=== PATIENT | male | born 1995 | race Caucasian/White ===

== ENCOUNTER 2018-05-19 16:09 | Emergency (ER) | payer BC ==
[2018-05-19] MEDS ORDERED: NS 0.9% 1000 ML* 1,000 ML IV ONE (18:25)
[2018-05-19 18:48] LABS: ABS Basophils 0.1 10^3/ul (0-0.2); ABS Eosinophils 0.3 10^3/ul (0-0.6); ABS Lymphocytes 2.8 10^3/ul (1.0-4.8); ABS Monocytes 0.5 10^3/ul (0-0.8); ABS Neutrophils 4.3 10^3/ul (1.5-7.7); ABS Nucleated RBC 0 10^3/ul; Eosinophil % 3.4 % (0-6); Hematocrit 43 % (42-52); Hemoglobin 14.9 g/dl (14.0-18.0); Lymphocyte % 35.5 % (25-47); Mean Corpuscular HGB Conc 35 g/dl (31-36); Mean Corpuscular Hemoglobin 30 pg (27-31); Mean Corpuscular Volume 87 fL (80-94); Mean Platelet Volume 7.2 um3 (7.4-10.4); Nucleated Red Blood Cells % 0.1; Platelet Count 243 10^3/ul (150-450); Red Blood Count 4.92 10^6/ul (4.00-5.40); Red Cell Distribution Width 14 % (10.5-15)
[2018-05-19 19:05] LABS: EGFR Non-African American 94.8 (>60)
[2018-05-19] MEDS ORDERED: DOXYcycline CAP(*) 100 MG PO ONE ×2 (20:30→20:31)
[2018-05-19 21:30] VITALS: BP 138/80
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
== END 2018-05-19 21:35 | disposition home or self-care (01) ==
LOC: ED 16:09
DX: R53.81 Other malaise (principal); R73.03 Prediabetes
CPT/HCPCS: 36415; 80053; 85025; 86140; 87476; 87798; 96360; 99283; A9270-GY

== ENCOUNTER 2019-12-24 15:53 | Emergency (ER) | payer BC ==
--- OUTSIDE RECORDS SUMMARY | 2019-12-24 16:41 | XMS REPORT | Summary of Care ---
:1995 Author Organization [facility] Address [address] [place] [address] Care Team Providers Name Role Phone Joyce Morataya Primary Care Provider Reason for Visit Reason Comments Check Up pt was told needs labs done for kidneies before getting his wisdome teeth pulled, also wants to discuss his low back pain that started over a mth ago d/t doing lots of bending and lifting Encounter Details Date Type Department Care Team Description 12/19/2019 Office Visit [facility], Back pain with radiculopathy (Primary Dx); Practice MD Joyce Numbness in feet; [address] [facility] [place] [address] [phone] Allergies No Known Allergiesdocumented as of this encounter (statuses as of 12/19/2019) Medications Medication Sig Dispensed Refills Start Date End Date Status Multiple Take 1 Tab by 0 Active Vitamins-Minerals mouth DAILY. (MULTIVITAMIN MEN PO) AMOXICILLIN PO Take by mouth 0 Active TWICE DAILY. Menthol, Topical 2 mg by Apply 0 Active Analgesic, externally (FLEXALL EX) route. sertraline Take 100 mg by 0 12/19/2019 Discontinued (ZOLOFT) 100 MG mouth DAILY. Oral Tab DOXYCYCLINE PO Take by mouth. 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 documented as of this encounter Last Filed Vital Signs Vital Sign Reading Time Taken Comments Blood Pressure 102/60 12/19/2019 11:51 AM EST Pulse 79 12/19/2019 11:51 AM EST Temperature 36.9 12/19/2019 11:51 AM EST C (98.4 F) Respiratory Rate - - Oxygen Saturation 97% 12/19/2019 11:51 AM EST Inhaled Oxygen Concentration - - Weight 117.3 kg (258 lb 8 oz) 12/19/2019 11:51 AM EST Height 188 cm (6' 2") 12/19/2019 11:51 AM EST Body Mass Index 33.19 12/19/2019 11:51 AM EST documented in this encounter Patient Instructions Patient InstructionsJoyce Morataya MD - 12/19/2019 11:40 AM EST1. Will call you with tests results and further recommendations documented in this encounter Progress Notes Joyce Morataya MD - 12/19/2019 11:40 AM EST PATIENT: Jorge Interiano : 1995 DATE OF SERVICE: 12/19/2019 SUBJECTIVE: Jorge Interiano is a 24-y.o. male who complains of low back pain for several week(s), positional with bending or lifting, with radiation down the legs. Precipitating factors: none recalled by the patient. Prior history of back problems: recurrent self limited episodes of low back pain in the past. There is intermittent numbness in the feet. Past Medical History: Diagnosis Date Anxiety Depression Horseshoe kidney Outpatient Medications as of 12/19/2019 Medication Sig Dispense Refill Multiple Vitamins-Minerals (MULTIVITAMIN MEN PO) Take 1 Tab by mouth DAILY. No current facility-administered medications on file as of 12/19/2019. OBJECTIVE: BP 102/60 (BP Location: Left arm, Patient Position: Sitting) | Pulse 79 | Temp 98.4 F (36.9 C) | Ht 6' 2" (1.88 m) | Wt 258 lb 8 oz (117.3 kg) | SpO2 97% | BMI 33.19 kg/m General appearance: alert, well appearing, and in no distress. Patient doesn't appear to be in pain, no antalgic gait noted. Lumbosacral spine area reveals .tenderness in the Lumbar area. Painful and reduced LS ROM noted. Straight leg raise is positive on both sides. DTR's, motor strength and sensation normal, including heel and toe gait. Peripheral pulses are palpable... ICD-9-CM ICD-10-CM 1. Back pain with radiculopathy 729.2 M54.10 XR LUMBAR SPINE MIN 4 VIEWS ( STANDARD) 2. Numbness in feet 782.0 R20.0 COMPREHENSIVE METABOLIC PANEL THYROID STIMULATING HORMONE CBC WITH DIFFERENTIAL VITAMIN B12 LEVEL 3. Need for vaccination V05.9 Z23 [place] TET, DIP & ACEL PERTUSSIS(DX Z23) Patient Instructions 1. Will call you with tests results and further recommendations Author: Joyce Morataya MD 12/19/2019 21:43 documented in this encounter Plan of Treatment Name Type Priority Associated Diagnoses Date/Time XR LUMBAR SPINE MIN Imaging Routine Back pain with 12/19/2019 12:31 PM 4 VIEWS (STANDARD) radiculopathy EST Health Maintenance Due Date Last Done Comments DTaP/Tdap/Td Vaccines (1 - 2005 Tdap) INFLUENZA VACCINE (#1) 2019 DEPRESSION SCREENING 12/19/2020 12/19/2019, 05/29/2018 HEPATITIS A IMMUNIZATION Aged Out No longer eligible based SERIES on patient's age to complete this topic HPV IMMUNIZATION SERIES Aged Out No longer eligible based on patient's age to complete this topic MENINGOCOCCAL VACCINE IMM Aged Out No longer eligible based on patient's age to complete this topic PNEUMOCOCCAL 0-64 YRS Aged Out No longer eligible based on patient's age to complete this topic documented as of this encounter Goals Goal Patient Goal Associated Recent Patient-Stated? Author Type Problems Progress Depression Depression 13 No kanika Sung (PHQ-9) (05/29/2018 MD Sherif total score < 5 10:43 AM EDT) Note: This is an individualized treatment (depression) goal for Jorge Interiano: Displayed above is your goal for a depression screening (PHQ-9) score that would indicate good control of your depression. Keep a regular sleep schedule Lifestyle No Sherif Sung MD Note: This is an individualized lifestyle goal for Jorge Interiano: Please maintain a regular sleep schedule. This may help with some symptoms of depression. Take all prescribed medications as directed Self-management No Sherif Sung MD Note: This is an individualized self-management goal for Jorge Interiano: Please take all prescribed medications as directed. 1. Do not skip doses. If you cannot afford your medications, talk with your doctor. 2. Use a pill reminder system such as a pill box if needed. Your pharmacist can help you with this. 3. Contact your Pharmacy 5 days before your medication runs out. If you cannot take your medications for any reasons, talk with your doctor. 4. Please bring all of your medication bottles and inhalers (or a list of all your medications/inhalers) with you to every visit. Potential barriers to meeting all of your care plan goals will continue to be addressed on an ongoing basis. documented as of this encounter Procedures Procedure Name Priority Date/Time Associated Comments Diagnosis CBC WITH DIFFERENTIAL Routine 12/19/2019 12:16 Numbness in feet Results for this PM EST procedure are in the results section. VITAMIN B12 LEVEL Routine 12/19/2019 12:16 Numbness in feet Results for this PM EST procedure are in the results section. THYROID STIMULATING Routine 12/19/2019 12:16 Numbness in feet Results for this HORMONE PM EST procedure are in the results section. COMPREHENSIVE Routine 12/19/2019 12:16 Numbness in feet Results for this METABOLIC PANEL PM EST procedure are in the results section. documented in this encounter Results VITAMIN B12 LEVEL (12/19/2019 12:16 PM EST) Vitamin B12 533 239 - 931 pg/ml [facility] Specimen Blood - Blood specimen (specimen) Performing Organization Address City/State/Zipcode Phone Number [facility] [address] [place] [address] CBC WITH DIFFERENTIAL (12/19/2019 12:16 PM EST) WBC Count 6.71 4.23 - 9.07 K/uL [facility] RBC Count 5.75 4.30 - 5.89 M/UL [facility] Hemoglobin 17.0 13.7 - 17.5 g/dL [facility] Hematocrit 49.5 40.1 - 51.0 % [facility] MCV 86.1 79.0 - 92.2 FL [facility] MCH 29.6 25.7 - 32.2 PG [facility] MCHC 34.3 32.3 - 36.5 g/dL [facility] Platelet Count 294 163 - 337 K/uL [facility] MPV 9.1 (L) 9.4 - 12.4 FL [facility] RDW 13.2 11.6 - 14.4 % [facility] Neutrophil % 47.2 34.0 - 67.9 % [facility] Lymphocyte % 38.3 21.8 - 53.1 % [facility] Monocyte % 7.7 5.3 - 12.2 % [facility] Eosinophil % 5.4 0.8 - 7.0 % [facility] Basophil % 1.3 (H) 0.2 - 1.2 % [facility] nRBC % 0.0 0.0 - 0.2 % [facility] Neutrophil # 3.16 1.78 - 5.38 K/UL [facility] Lymphocyte # 2.57 1.32 - 3.57 K/UL [facility] Monocyte # 0.52 0.30 - 0.82 K/UL [facility] Eosinophil # 0.36 0.04 - 0.54 K/UL [facility] Basophil # 0.09 (H) 0.01 - 0.08 K/UL [facility] Immature Gran % 0.1 0.0 - 0.4 % [facility] Immature Gran # 0.01 0.00 - 0.03 K/uL [facility] NRBC # 0.00 0.00 - 0.12 K/uL [facility] Specimen Blood - Blood specimen (specimen) Performing Organization Address City/State/[facility] Hospital[facility] Phone Number [facility] [address] [place] [address] THYROID STIMULATING HORMONE (12/19/2019 12:16 PM EST) TSH 0.33 (L) 0.47 - 4.68 uIu/ml [facility] Specimen Blood - Blood specimen (specimen) Performing Organization Address City/State/Zipcode Phone Number [facility] [address] [place] [address] COMPREHENSIVE METABOLIC PANEL (12/19/2019 12:16 PM EST) Sodium 139 134 - 145 mmol/L [facility] Potassium 4.7 3.5 - 5.1 mmol/L [facility] Chloride 101 98 - 107 mmol/L [facility] CO2 30 22 - 30 mmol/L [facility] Calcium 10.2 (H) 8.3 - 10.1 mg/dl [facility] Albumin 5.2 (H) 3.5 - 5.0 g/dl [facility] BUN 13 9 - 20 mg/dl [facility] Creatinine 0.9 0.8 - 1.5 mg/dl [facility] Glucose 91 70 - 99 mg/dl [facility] Total Protein 8.4 (H) 6.3 - 8.2 g/dl [facility] Total Bilirubin 0.5 0.0 - 1.1 MG/DL [facility] AST 63 (H) 17 - 59 U/L [facility] ALT 60 21 - 72 U/L [facility] Alkaline 69 40 - 150 U/L [facility] eGFR >60 See Interpretation [facility] Comment: Below ml/min/1.73ml GROUP Estimated GFR Interpretation: Sq LABORATORY Above 60ml/min/1.73m2 = Normal Renal Function 30-59 ml/min/1.73m2 = Stage 3 Chronic Kidney Disease 15-29 ml/min/1.73m2 = Stage 4 Chronic Kidney Disease Less than 15 ml/min/1.73m2 = Stage 5 Chronic Kidney Disease The GFR value is calculated using the Modification of Diet in Renal Disease ( MDRD) Study Equation which can be found at: https://www.kidney.org/content/kxlv-fpvkb-gdfsmmvk BUN/Creatinine 14 6 - 22 RAT[facility] Anion Gap 8 3 - 11 mmol/L [facility] A/G Ratio 1.6 0.8 - 2.0 ratio [facility] Specimen Blood - Blood specimen (specimen) Performing Organization Address City/State/[facility] Hospital[facility] Phone Number [facility] [address] [address] documented in this encounter Visit Diagnoses Diagnosis Back pain with radiculopathy Numbness in feet Disturbance of skin sensation Need for vaccination Need for prophylactic vaccination and inoculation against unspecified single disease documented in this encounter Insurance Payer Benefit Plan / Subscriber ID Effective Dates Phone Address Type Group [employer] x[employer]xxx 2017-Present [employer] documented as of this encounter
[2019-12-24 18:37] LABS: ABS Basophils 0.1 10^3/ul (0-0.2); ABS Eosinophils 0.3 10^3/ul (0-0.6); ABS Lymphocytes 1.6 10^3/ul (1.0-4.8); ABS Monocytes 0.7 10^3/ul (0-0.8); ABS Neutrophils 6.7 10^3/ul (1.5-7.7); Eosinophil % 3.5 %; Hematocrit 46 % (42-52); Hemoglobin 16.3 g/dL (14.0-18.0); Mean Corpuscular HGB Conc 36 g/dL (31-36); Mean Corpuscular Hemoglobin 31 pg (27-31); Mean Corpuscular Volume 86 fL (80-94); Mean Platelet Volume 6.6 fL (7.4-10.4); Platelet Count 242 10^3/uL (150-450); Red Blood Count 5.33 10^6 /uL (4.18-5.48); Red Cell Distribution Width 14 % (10-15); White Blood Count 9.4 10^3/uL (3.5-10.8)
[2019-12-24 19:06] LABS: ALT 37 U/L (7-52); AST 23 U/L (13-39); Albumin/Globulin Ratio 1.7 (1-3); Alkaline Phosphatase 74 U/L (34-104); Anion Gap 8 mmol/L (2-11); BUN/Creatinine Ratio 11.2 (8-20); Blood Urea Nitrogen 12 mg/dL (6-24); C Reactive Protein 92.38 mg/L (<8.01); CO2 Carbon Dioxide 27 mmol/L (22-32); Calcium 9.6 mg/dL (8.6-10.3); Chloride 102 mmol/L (101-111); EGFR African American 101.9 (>60); EGFR Non-African American 84.2 (>60); Glucose 96 mg/dL (70-100); Potassium 4.5 mmol/L (3.5-5.0); Sodium 137 mmol/L (135-145)
[2019-12-24 21:15] LABS: Urine Appearance Clear; Urine Bilirubin Negative (Negative); Urine Blood Negative (Negative); Urine Color Yellow; Urine Glucose Negative (Negative); Urine Ketones Trace (Negative); Urine Nitrite Negative (Negative); Urine Protein Negative (Negative); Urine Specific Gravity 1.018 (1.010-1.030); Urine Urobilinogen Negative (Negative)
--- NOTE | 2019-12-24 22:29 | ED ---
Abdominal Pain/Male - HPI Summary HPI Summary: Patient complains of umbilical pain radiating to lower abdomen, diarrhea 3 days. Abdominal pain described as intermittent, crampy, worse before bowel movement, improved after bowel movement. Denies fever, cough, sore throat, CP, SOB, N/V, change in urine. Medical history is none. Abdominal surgical history is none. - History of Current Complaint Chief Complaint: EDAbdPain Stated Complaint: ABD PAIN /DIARRHEA PER PT Time Seen by Provider: 12/24/19 22:26 Hx Obtained From: Patient Onset/Duration: Gradual Onset, Lasting Days Timing: Intermittent, Lasting Minutes Severity Initially: Moderate Severity Currently: Moderate Pain Intensity: 4 Pain Scale Used: 0-10 Numeric Location: Suprapubic, Umbilical Radiates: No Character: Cramping Aggravating Factor(s): Food Alleviating Factor(s): Bowel Movement Associated Signs And Symptoms: Positive: Negative - Allergies/Home Medications Allergies/Adverse Reactions: Allergies Allergy/AdvReac Type Severity Reaction Status Date / Time No Known Allergies Allergy Unknown Verified 12/24/19 16:08 Reaction Details Home Medications: Home Medications Desvenlafaxine ER 50 mg DAILY 12/24/19 [History Confirmed 12/24/19] Tizanidine HCl 12/24/19 [History] PMH/Surg Hx/FS Hx/Imm Hx Endocrine/Hematology History: Reports: Hx Diabetes - prediabetic Cardiovascular History: Denies: Hx Coronary Artery Disease, Hx Hypertension History: Denies: Hx Dialysis Sensory History: Denies: Hx Eye Prosthesis Opthamlomology History: Denies: Hx Legally Blind EENT History: Denies: Hx Deafness Neurological History: Denies: Hx Dementia Infectious Disease History: No Infectious Disease History: Denies: Traveled Outside the [place] in Last 30 Days - Family History Known Family History: Positive: Cardiac Disease, Hypertension, Diabetes - Social History Alcohol Use: Occasionally Substance Use Type: Reports: None Smoking Status (MU): Never Smoked Tobacco Review of Systems Constitutional: Negative Eyes: Negative ENT: Negative Cardiovascular: Negative Respiratory: Negative Positive: Abdominal Pain, Diarrhea Genitourinary: Negative Musculoskeletal: Negative Skin: Negative Neurological/Mental Status: Negative Psychological: Normal All Other Systems Reviewed And Are Negative: Yes Physical Exam - Summary Physical Exam Summary: Moderate tenderness right lower quadrant. Abdominal exam otherwise unremarkable. Triage Information Reviewed: Yes Vital Signs On Initial Exam: Initial Vitals Temp Pulse Resp BP Pulse Ox 97.7 F 94 16 132/60 96 12/24/19 16:05 12/24/19 16:05 12/24/19 16:05 12/24/19 16:05 12/24/19 16:05 Vital Signs Reviewed: Yes Appearance: Positive: Well-Appearing Skin: Positive: Warm Head/Face: Positive: Normal Head/Face Inspection Eyes: Positive: Normal Neck: Positive: Supple Respiratory/Lung Sounds: Positive: Clear to Auscultation Cardiovascular: Positive: Normal Abdomen Description: Positive: Other: Musculoskeletal: Positive: Normal Neurological: Positive: Normal Psychiatric: Positive: Normal AVPU Assessment: Alert - [place] Coma Scale Best Eye Response: 4 - Spontaneous Best Motor Response: 6 - Obeys Commands Best Verbal Response: 5 - Oriented Coma Scale Total: 15 Procedures - Sedation Patient Received Moderate/Deep Sedation with Procedure: No Diagnostics - Vital Signs Vital Signs Temp Pulse Resp BP Pulse Ox 12/24/19 21:02 97.5 F 84 16 138/80 99 12/24/19 18:54 98.8 F 88 16 122/67 97 12/24/19 16:05 97.7 F 94 16 132/60 96 - Laboratory Lab Results: Lab Results 12/24/19 12/24/19 12/24/19 Range/Units 18:24 18:24 20:57 WBC 9.4 (3.5-10.8) 10^3/uL RBC 5.33 (4.18-5.48) 10^6 /uL Hgb 16.3 (14.0-18.0) g/dL Hct 46 (42-52) % MCV 86 (80-94) fL MCH 31 (27-31) pg MCHC 36 (31-36) g/dL RDW 14 (10-15) % Plt Count 242 (150-450) 10^3/uL MPV 6.6 L (7.4-10.4) fL Neut % (Auto) 71.0 % Lymph % (Auto) 17.0 % [place] % (Auto) 7.8 % Eos % (Auto) 3.5 % Baso % (Auto) 0.7 % Absolute Neuts (auto) 6.7 (1.5-7.7) 10^3/ul Absolute Lymphs (auto) 1.6 (1.0-4.8) 10^3/ul Absolute Monos (auto) 0.7 (0-0.8) 10^3/ul Absolute Eos (auto) 0.3 (0-0.6) 10^3/ul Absolute Basos (auto) 0.1 (0-0.2) 10^3/ul Absolute Nucleated RBC 0.0 10^3/ul Nucleated RBC % 0.0 Sodium 137 (135-145) mmol/L Potassium 4.5 (3.5-5.0) mmol/L Chloride 102 (101-111) mmol/L Carbon Dioxide 27 (22-32) mmol/L Anion Gap 8 (2-11) mmol/L BUN 12 (6-24) mg/dL Creatinine 1.07 (0.67-1.17) mg/dL Est GFR ( Amer) 101.9 (>60) Est GFR (Non-Af Amer) 84.2 (>60) BUN/Creatinine Ratio 11.2 (8-20) Glucose 96 (70-100) mg/dL Calcium 9.6 (8.6-10.3) mg/dL Total Bilirubin 0.40 (0.2-1.0) mg/dL AST 23 (13-39) U/L ALT 37 (7-52) U/L Alkaline Phosphatase 74 (34-104) U/L C-Reactive Protein 92.38 H (<8.01) mg/L Total Protein 8.0 (6.4-8.9) g/dL Albumin 5.0 (3.2-5.2) g/dL Globulin 3.0 (2-4) g/dL Albumin/Globulin Ratio 1.7 (1-3) Lipase < 10 L (11.0-82.0) U/L Urine Color Yellow Urine Appearance Clear Urine pH 5.0 (5-9) Ur Specific [place] 1.018 (1.010-1.030) Urine Protein Negative (Negative) Urine Ketones Trace A (Negative) Urine Blood Negative (Negative) Urine Nitrate Negative (Negative) Urine Bilirubin Negative (Negative) Urine Urobilinogen Negative (Negative) Ur Leukocyte Esterase Negative (Negative) Urine Glucose Negative (Negative) Urine Ascorbic Acid * A (Negative) Result Diagrams: 12/24/19 18:24 12/24/19 18:24 Lab Statement: Any lab studies that have been ordered have been reviewed, and results considered in the medical decision making process. Abdominal Pain Male Course/Dx - Course Course Of Treatment: Patient complains of umbilical pain radiating to lower abdomen, diarrhea 3 days. Abdominal pain described as intermittent, crampy, worse before bowel movement, improved after bowel movement. Denies fever, cough , sore throat, CP, SOB, N/V, change in urine. Medical history is none. Abdominal surgical history is none. Vital signs within normal limits. CRP 92. Labs otherwise unremarkable. Urine negative. CT abdomen and pelvis normal abdomen. 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 Patient states history of back pain 3 weeks with occasional numbness and tingling in bilateral lower extremities. Denies real urinary retention or bowel incontinence. Has normal sensation at the anus. Denies traumatic event. No neurosurgery supervisor inspection [place] [facility] Discussed patient with neurosurgeon Dr. Dsouza at [facility] recommended discharge with outpatient follow-up. - Diagnoses Provider Diagnoses: Back pain, Diarrhea, Abdominal pain Discharge ED - Sign-Out/Discharge Documenting (check all that apply): Patient Departure - Discharge Plan Condition: Stable Disposition: HOME Patient Education Materials: Acute Nausea and Vomiting (ED), Acute Diarrhea (ED ), Back Pain (ED) Referrals: Joyce Morataya MD [Primary Care Provider] - Mustapha Bello MD [Medical Doctor] - Additional Instructions: Drink plenty of fluids to maintain hydration while having diarrhea. Follow-up with neurosurgery Dr. Bello for further evaluation of lower back pain. Incidental finding on the CAT scan today suggests stenosis of the thecal sac. - Billing Disposition and Condition Condition: STABLE Disposition: Home
[2019-12-24] MEDS ORDERED: Iohexol 300* (CONTRAST) 10 ML SDV IV ONE (23:45)
[2019-12-25 01:55] VITALS: BP 149/76
== END 2019-12-25 01:55 | disposition home or self-care (01) ==
LOC: ED 15:53
DX: R10.33 Periumbilical pain (principal); R19.7 Diarrhea, unspecified; M51.26 Other intervertebral disc displacement, lumbar region; N20.0 Calculus of kidney; Q63.1 Lobulated, fused and horseshoe kidney; R73.03 Prediabetes
CPT/HCPCS: 36415; 74177; 80053; 81003; 83690; 85025; 86140; 99282; Q9967

== ENCOUNTER 2020-01-07 08:30 | Emergency (ER) | payer BC ==
--- NOTE | 2020-01-07 08:42 | ED ---
Back Pain - HPI Summary HPI Summary: Pt. is a 24 y.o male who presents to the ER for low back pain x 1 day. Pt. notes he worked out at the gym and was carrying heavy back pain yesterday. He does not recall any specific injury or fall. Pt. notes he woke up with acute low back pain. Denies fever, urinary sxs, abd. pain, testicle pain. No past hx. Sxs are mild in severity. No modifying factors. - History of Current Complaint Chief Complaint: EDBackInjuryPain Stated Complaint: LOW BACK/LEG PAIN NUMBNESS PER PT Time Seen by Provider: 01/07/20 08:37 Hx Obtained From: Patient Pain Intensity: 8 - Allergies/Home Medications Allergies/Adverse Reactions: Allergies Allergy/AdvReac Type Severity Reaction Status Date / Time No Known Allergies Allergy Unknown Verified 01/07/20 08:35 Reaction Details Home Medications: Home Medications Tizanidine HCl 2 mg PO BID PRN 12/24/19 [History Confirmed 01/07/20] Desvenlafaxine (NF) [Pristiq (NF)] 50 mg PO DAILY 01/07/20 [History Confirmed ] Hydrocodone/Acetaminophen [Hydrocodone-Acetamin 5-325 mg] 1 each PO Q6H #12 tablet MDD 4 01/07/20 [Rx] predniSONE 50 mg TAB [Deltasone 50 mg TAB] 50 mg PO DAILY #5 tab 01/07/20 [Rx] PMH/Surg Hx/FS Hx/Imm Hx Previously Healthy: Yes Endocrine/Hematology History: Reports: Hx Diabetes - prediabetic Cardiovascular History: Denies: Hx Coronary Artery Disease, Hx Hypertension History: Denies: Hx Dialysis Sensory History: Denies: Hx Eye Prosthesis, Hx Legally Blind, Hx Deafness Opthamlomology History: Denies: Hx Eye Prosthesis, Hx Legally Blind Neurological History: Denies: Hx Dementia Infectious Disease History: No Infectious Disease History: Denies: Traveled Outside the [place] in Last 30 Days - Family History Known Family History: Positive: Cardiac Disease, Hypertension, Diabetes, Non- Contributory - Social History Occupation: Unemployed Lives: With Family Alcohol Use: Occasionally Substance Use Type: Reports: None Smoking Status (MU): Never Smoked Tobacco Review of Systems - ROS Summary Review of Systems Summary: DOXYcycline CAP(*) [DOXYcycline 100MG CAP(*)] 100 mg PO BID #28 cap 07/07/18 [Rx ] Desvenlafaxine ER 50 mg DAILY 12/24/19 [History Confirmed 12/24/19] Tizanidine HCl 12/24/19 [History] Constitutional: Negative Cardiovascular: Negative Respiratory: Negative Gastrointestinal: Negative Genitourinary: Negative Positive: Other - low back pain Skin: Negative Neurological/Mental Status: Negative Negative: Weakness, Paresthesia, Numbness All Other Systems Reviewed And Are Negative: Yes Physical Exam Triage Information Reviewed: Yes Vital Signs On Initial Exam: Initial Vitals Temp Pulse Resp BP Pulse Ox 96.8 F 92 19 198/94 100 01/07/20 08:31 01/07/20 08:31 01/07/20 08:31 01/07/20 08:31 01/07/20 08:31 Vital Signs Reviewed: Yes Appearance: Positive: Well-Appearing - Pt. sitting up in bed in NAD. Appears uncomfortable but nontoxic. Skin: Positive: Warm, Dry Head/Face: Positive: Normal Head/Face Inspection Eyes: Positive: Normal, EOMI, MAILE Neck: Positive: Supple Respiratory/Lung Sounds: Positive: Clear to Auscultation, Breath Sounds Present Cardiovascular: Positive: Normal, RRR Abdomen Description: Positive: Nontender, Soft Musculoskeletal: Positive: Other - 5/5 strength in LEs. Bilateral paraspinal pain to lumbar region. Neurological: Positive: Normal, CN Intact II-III Psychiatric: Positive: Affect/Mood Appropriate Procedures - Sedation Patient Received Moderate/Deep Sedation with Procedure: No Diagnostics - Vital Signs Vital Signs Temp Pulse Resp BP Pulse Ox 01/07/20 08:31 96.8 F 92 19 198/94 100 - Laboratory Lab Statement: Any lab studies that have been ordered have been reviewed, and results considered in the medical decision making process. Back Pain Course/Dx - Course Course Of Treatment: Pt. with acute onset low back pain. Afebrile. NO neuro deficits. Ambulatory. Toradol given for pain. Possible kidney stone given acute onset but u/a negative for RBCs. On re-exam pt. feeling much better. Suspect muscular etiology. Continue NSAIDS. Apply heat. To r.u with [facility] if sxs persist. Pt. understands and agrees with plan. - Diagnoses Differential Diagnosis/HQI/PQRI: Positive: Renal Colic, Strain, Sprain Provider Diagnoses: Acute low back pain Discharge ED - Sign-Out/Discharge Documenting (check all that apply): Patient Departure - Discharge Plan Condition: Good Disposition: HOME Prescriptions: Hydrocodone/Acetaminophen [Hydrocodone-Acetamin 5-325 mg] 1 each PO Q6H #12 tablet MDD 4 predniSONE 50 mg TAB [Deltasone 50 mg TAB] 50 mg PO DAILY #5 tab Patient Education Materials: Lumbar Disc Herniation (ED), Lumbar Spinal Stenosis (ED) Forms: *Work Release Referrals: Joyce Morataya MD [Primary Care Provider] - Additional Instructions: Follow up with physical therapy and neurosurgery as scheduled Medication as directed Avoid heavy lifting Apply ice or heat Return to ER for leg weakness, numbness to genital region, loss of bowel or bladder control or if concerned - Billing Disposition and Condition Condition: GOOD Disposition: Home - Attestation Statements Provider Attestation: Incorrect chart. - Fe Shea MD
--- OUTSIDE RECORDS SUMMARY | 2020-01-07 08:49 | XMS REPORT | Summary of Care ---
:1995 Author Organization [facility] Address [address] [place] [address] Care Team Providers Name Role Phone Joyce Morataya Primary Care Provider Reason for Visit Reason Comments Follow Up to back pain , pt stated pain is very bad today , in lower left side of back Encounter Details Date Type Department Care Team Description 01/02/2020 Office Visit [facility] Rafia, Back pain with radiculopathy (Primary Dx); Practice MD Joyce Low TSH level; [address] [place] [address] [place] [address] [phone] Allergies No Known Allergiesdocumented as of this encounter (statuses as of 01/02/2020) Medications Medication Sig Dispensed Refills Start End Date Status Date Multiple Take 1 Tab by 0 Active Vitamins-Minerals mouth DAILY. (MULTIVITAMIN MEN PO) Desvenlafaxine ER EVERY DAY 0 Active 50 MG Oral TABLET 0 SR 24 HR ibuprofen (MOTRIN) Take 1 Tab by 60 Tab 1 Active 600 MG Oral Tab mouth EVERY SIX 0 HOURS NEEDED (pain). AMOXICILLIN PO Take by mouth 0 01/02/20 Discontinued TWICE DAILY. 20 (Patient stopped the medication) Menthol, Topical 2 mg by Apply 0 01/02/20 Discontinued Analgesic, (FLEXALL externally 20 EX) route. 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 Depression documented as of this encounter (statuses as of 01/02/2020) Immunizations Name Administration Dates Next Due TDAP Vaccine 12/19/2019 documented as of this encounter Social History Tobacco Use Types Packs/Day Years Used Date Former Smoker Smokeless Tobacco: Never Used Alcohol Use Drinks/Week oz/Week Comments No Sex Assigned at Date Recorded Not on file documented as of this encounter Last Filed Vital Signs Vital Sign Reading Time Taken Comments Blood Pressure 120/60 01/02/2020 11:23 AM EST Pulse 95 01/02/2020 11:23 AM EST Temperature 36.8 01/02/2020 11:23 AM C (98.2 EST F) Respiratory Rate - - Oxygen Saturation 98% 01/02/2020 11:23 AM EST Inhaled Oxygen Concentration - - Weight 115.1 kg (253 lb 11.2 oz) 01/02/2020 11:23 AM EST Height 188 cm (6' 2") 01/02/2020 11:23 AM EST Body Mass Index 32.57 01/02/2020 11:23 AM EST documented in this encounter Patient Instructions Patient InstructionsJoyce Morataya MD - 01/02/2020 11:20 AM EST1. Follow up in 4 weeks and as needed 2. Take Motrin 600 mg every 6 hours as needed for pain documented in this encounter Progress Notes Joyce Morataya MD - 01/02/2020 11:20 AM EST PATIENT: Jorge Interiano : 1995 DATE OF SERVICE: 01/02/2020 Patient comes follow up back pain, bilateral feet paraesthesia Continues to have lower back pain. Recently increased. Takes Tylenol with minimal improvement Schedule for PT Also schedule appointment with neurosurgery (Seen recently at the ER with abdominal pain/stomach flu. Had CT done that showed spinal stenosis according to the patient) BP 120/60 (BP Location: Left arm, Patient Position: Sitting) | Pulse 95 | Temp 98.2 F (36.8 C) | Ht 6' 2" (1.88 m) | Wt 253 lb 11.2 oz (115.1 kg ) | SpO2 98% | BMI 32.57 kg/m General appearance: alert, well appearing, and in no distress. LS spine: Reversal of lumbar lordosis with out evidence of spondylolysis or spondylolisthesis. Degenerative changes in lower lumbar spine as described above. CMP - slightly elevated Calcium, AST, TSH - slightly low, CBC, Vit B12 - normal Component Latest Ref Rng & Units 12/19/2019 12/19/2019 12/19/2019 12/19/2019 12:16 PM 12:16 PM 12:16 PM 12:16 PM WBC COUNT 4.23 - 9.07 K/uL 6.71 RBC 4.30 - 5.89 M/UL 5.75 Hemoglobin 13.7 - 17.5 g/dL 17.0 Hematocrit 40.1 - 51.0 % 49.5 MCV 79.0 - 92.2 FL 86.1 MCH 25.7 - 32.2 PG 29.6 MCHC 32.3 - 36.5 g/dL 34.3 Platelet Count 163 - 337 K/uL 294 MPV 9.4 - 12.4 FL 9.1 (L) RDW 11.6 - 14.4 % 13.2 NEUTROPHILS 34.0 - 67.9 % 47.2 Lymphocyte % 21.8 - 53.1 % 38.3 MONOCYTES 5.3 - 12.2 % 7.7 Eosinophils 0.8 - 7.0 % 5.4 Basophil % 0.2 - 1.2 % 1.3 (H) nRBC % 0.0 - 0.2 % 0.0 Neutrophil # 1.78 - 5.38 K/UL 3.16 Lymphocyte # 1.32 - 3.57 K/UL 2.57 Monocyte # 0.30 - 0.82 K/UL 0.52 Eosinophil # 0.04 - 0.54 K/UL 0.36 Basophil # 0.01 - 0.08 K/UL 0.09 (H) Immature Gran % 0.0 - 0.4 % 0.1 Immature Gran # 0.00 - 0.03 K/uL 0.01 NRBC # 0.00 - 0.12 K/uL 0.00 Sodium 134 - 145 mmol/L 139 Potassium 3.5 - 5.1 mmol/L 4.7 Chloride 98 - 107 mmol/L 101 CO2 22 - 30 mmol/L 30 Calcium 8.3 - 10.1 mg/dl 10.2 (H) Albumin 3.5 - 5.0 g/dl 5.2 (H) BUN 9 - 20 mg/dl 13 Creatinine 0.8 - 1.5 mg/dl 0.9 Glucose (Lab) 70 - 99 mg/dl 91 Protein,Total 6.3 - 8.2 g/dl 8.4 (H) Total Bilirubin 0.0 - 1.1 MG/DL 0.5 AST 17 - 59 U/L 63 (H) ALT 21 - 72 U/L 60 ALKALINE PHOSPHATASE 40 - 150 U/L 69 eGFR See Interpretation Below ml/min/1.73ml Sq >60 BUN/Creatinine Ratio 6 - 22 RATIO 14 Anion Gap 3 - 11 mmol/L 8 A/G Ratio 0.8 - 2.0 ratio 1.6 TSH 0.47 - 4.68 uIu/ml 0.33 (L) Vitamin B12 239 - 931 pg/ml 533 Patient advised on tests results ICD-9-CM ICD-10-CM 1. Back pain with radiculopathy Plans for PT 729.2 M54.10 2. Low TSH level 794.5 R79.89 3. Elevated LFTs 790.6 R94.5 Will repeat non fasting blood tests in 1 month Patient Instructions 1. Follow up in 4 weeks and as needed 2. Take Motrin 600 mg every 6 hours as needed for pain Author: Joyce Morataya MD 01/02/2020 13:35 documented in this encounter Plan of Treatment Date Type Specialty Care Team Description 01/10/2020 Office Visit Physical Therapy Abbey Ochoa, PT [address] [place] [address] [phone] 01/28/2020 Office Visit Neurosurgery Lc Jeffers MD [address] [address] [phone] 01/28/2020 Lab Internal Medicine 02/01/2020 Office Visit Family Practice Joyce Morataya MD [address] [place] [address] [phone] Health Maintenance Due Date Last Done Comments INFLUENZA VACCINE (#1) 2019 DEPRESSION SCREENING 12/19/2020 12/19/2019, 05/29/2018 DTaP/Tdap/Td Vaccines (2 - 12/19/2029 12/19/2019 Tdap) HEPATITIS A IMMUNIZATION Aged Out No longer [...] ongoing basis. documented as of this encounter Results Not on filedocumented in this encounter Visit Diagnoses Diagnosis Back pain with radiculopathy Low TSH level Nonspecific abnormal results of thyroid function study Elevated LFTs Other abnormal blood chemistry documented in this encounter Insurance Payer Benefit Plan / Subscriber ID Effective Dates Phone Address Type Group [employer] [id number] 2017-Present [employer] documented as of this encounter
[2020-01-07 09:25] VITALS: BP 0/0
--- NOTE | 2020-01-07 16:56 | ED ---
Back Pain - HPI Summary HPI Summary: Patient is a 24-year-old male who presents emergency department for worsening low back pain times several days. Patient was seen in the ER last week for abdominal pain and had a CAT scan of abdomen and pelvis that showed disc herniation to lumbar spine. Patient states he's noticed increased pain over the last few days and radicular pain into left leg. Patient denies numbness or weakness. Denies bowel or bladder incontinence or retention. Denies saddle paresthesias. Symptoms are mild in severity. Patient notes he has an appointment for physical therapy past week and an appointment with neurosurgery in 3 months. No current modifying factors. - History of Current Complaint Chief Complaint: EDBackInjuryPain Stated Complaint: LOW BACK/LEG PAIN NUMBNESS PER PT Time Seen by Provider: 01/07/20 08:37 Hx Obtained From: Patient Pain Intensity: 8 Pain Scale Used: 0-10 Numeric - Allergies/Home Medications Allergies/Adverse Reactions: Allergies Allergy/AdvReac Type Severity Reaction Status Date / Time No Known Allergies Allergy Unknown Verified 01/07/20 08:35 Reaction Details Home Medications: Home Medications Tizanidine HCl 2 mg PO BID PRN 12/24/19 [History Confirmed 01/07/20] Desvenlafaxine (NF) [Pristiq (NF)] 50 mg PO DAILY 01/07/20 [History Confirmed ] Hydrocodone/Acetaminophen [Hydrocodone-Acetamin 5-325 mg] 1 each PO Q6H #12 tablet MDD 4 01/07/20 [Rx] predniSONE 50 mg TAB [Deltasone 50 mg TAB] 50 mg PO DAILY #5 tab 01/07/20 [Rx] PMH/Surg Hx/FS Hx/Imm Hx Previously Healthy: Yes Endocrine/Hematology History: Reports: Hx Diabetes - prediabetic Cardiovascular History: Denies: Hx Coronary Artery Disease, Hx Hypertension History: Denies: Hx Dialysis Sensory History: Denies: Hx Eye Prosthesis, Hx Legally Blind, Hx Deafness Opthamlomology History: Denies: Hx Eye Prosthesis, Hx Legally Blind Neurological History: Denies: Hx Dementia Infectious Disease History: No Infectious Disease History: Denies: Traveled Outside the [place] in Last 30 Days - Family History Known Family History: Positive: Cardiac Disease, Hypertension, Diabetes, Non- Contributory - Social History Occupation: Unemployed Lives: With Family Alcohol Use: Occasionally Substance Use Type: Reports: None Smoking Status (MU): Never Smoked Tobacco Review of Systems - ROS Summary Review of Systems Summary: DOXYcycline CAP(*) [DOXYcycline 100MG CAP(*)] 100 mg PO BID #28 cap 05/20/18 [Rx ] Desvenlafaxine ER 50 mg DAILY 12/24/19 [History Confirmed 12/24/19] Tizanidine HCl 12/24/19 [History] Constitutional: Negative Cardiovascular: Negative Respiratory: Negative Gastrointestinal: Negative Genitourinary: Negative Positive: Other - low back pain Skin: Negative Neurological/Mental Status: Negative Negative: Weakness, Paresthesia, Numbness All Other Systems Reviewed And Are Negative: Yes Physical Exam Triage Information Reviewed: Yes Vital Signs On Initial Exam: Initial Vitals Temp Pulse Resp BP Pulse Ox 96.8 F 92 19 198/94 100 01/07/20 08:31 01/07/20 08:31 01/07/20 08:31 01/07/20 08:31 01/07/20 08:31 Vital Signs Reviewed: Yes Appearance: Positive: Well-Appearing - Pt. lying in bed in NAD. Skin: Positive: Warm, Dry Head/Face: Positive: Normal Head/Face Inspection Eyes: Positive: Normal, EOMI, MAILE Neck: Positive: Supple Musculoskeletal: Positive: Other - 5/5 strength in LEs. Low lumber tenderness. Ambulatory without difficulty. Neurological: Positive: Normal, CN Intact II-III Psychiatric: Positive: Affect/Mood Appropriate Procedures - Sedation Patient Received Moderate/Deep Sedation with Procedure: No Diagnostics - Vital Signs Vital Signs Temp Pulse Resp BP Pulse Ox 01/07/20 09:23 0 F 0 0 0/0 0 01/07/20 08:31 96.8 F 92 19 198/94 100 - Laboratory Lab Statement: Any lab studies that have been ordered have been reviewed, and results considered in the medical decision making process. Back Pain Course/Dx - Course Course Of Treatment: Pt. with radicular back pain. Afebrile. NO neuro deficits or signs of cauda equina. Ambulatory. CT from a few weeks ago shows disc protrusion likely causing pt.'s sxs. Will place on a course of prednisone and a few tablets of pain medication. Pt. has PT this week and has f.u with neurosx in a few mos. close f.u with pcp in meantime. Will return for leg weakness, numbness, loss of bowel or bladder function. Pt. understands and agrees with plan. CT per radiology from 12/24/2019 IMPRESSION: 1. Normal appendix. 2. Liquid feces in the colon, which will lead to diarrhea. 3. Horseshoe kidney and nonobstructive nephrolithiasis. No stones in the. ureters or urinary bladder. No hydronephrosis or hydroureter. 4. L3-L4: Mild stenosis of the thecal sac secondary to a mild broad-based. posterior protrusion. 5. L4-L5: Severe stenosis of the thecal sac secondary to a large broad central. protrusion. - Diagnoses Differential Diagnosis/HQI/PQRI: Positive: Herniated Disc, Strain, Sprain Provider Diagnoses: Lumbar disc herniation Discharge ED - Sign-Out/Discharge Documenting (check all that apply): Patient Departure - Discharge Plan Condition: Good Disposition: HOME Prescriptions: Hydrocodone/Acetaminophen [Hydrocodone-Acetamin 5-325 mg] 1 each PO Q6H #12 tablet MDD 4 predniSONE 50 mg TAB [Deltasone 50 mg TAB] 50 mg PO DAILY #5 tab Patient Education Materials: Lumbar Disc Herniation (ED), Lumbar Spinal Stenosis (ED) Forms: *Work Release Referrals: Joyce Morataya MD [Primary Care Provider] - Additional Instructions: Follow up with physical therapy and neurosurgery as scheduled Medication as directed Avoid heavy lifting Apply ice or heat Return to ER for leg weakness, numbness to genital region, loss of bowel or bladder control or if concerned - Billing Disposition and Condition Condition: GOOD Disposition: Home - Attestation Statements Provider Attestation: I was available for consultation for this patient. I did not evaluate the patient or participate in any medical decision making or disposition decisions unless I am specifically named in the chart as having consulted on the patient. If I have consulted on the patient, please see my own ED note on the patient encounter. Fe Shea MD
== END 2020-01-07 09:23 | disposition home or self-care (01) ==
LOC: ED 08:30
DX: M51.26 Other intervertebral disc displacement, lumbar region (principal); R73.03 Prediabetes
CPT/HCPCS: 99282